=== PATIENT | male | born 1965 | race Two or more races ===

== ENCOUNTER 2016-12-21 17:57 | Emergency (ER) | payer BC, OTHER ==
[2016-12-21] MEDS ORDERED: IOPAMIDOL 300 (61%) 150 ML VIAL IV ONE (17:58)
[2016-12-21 20:48] LABS: URINE BILIRUBIN NEGATIVE (NEGATIVE); URINE BLOOD NEGATIVE (NEGATIVE); URINE GLUCOSE (UA) NEGATIVE (NEGATIVE); URINE LEUKOCYTE ESTERASE NEGATIVE (NEGATIVE); URINE NITRITE NEGATIVE (NEGATIVE); URINE PROTEIN NEGATIVE (NEGATIVE); URINE UROBILINOGEN NORMAL (0-1 mg/dl)
[2016-12-21 20:53] LABS: URINE APPEARANCE CLEAR; URINE COLOR YELLOW
[2016-12-21 20:56] LABS: ABSOLUTE NEUTROPHIL COUNT 4.7 K/mm3 (1.8-7.7); BASO % 0.3 % (0.2-1.0); EOS # 0.1 (0.0-0.5); EOS % 0.8 % (0.9-2.9); HEMATOCRIT 44.2 % (32.0-52.0); HEMOGLOBIN 14.7 gm/l (14.0-18.0); IMM NEUT% 0.3 % (0-1); LYMPH # 1.9 (1.0-4.8); LYMPH % 25.7 % (15-45); MEAN CELL VOLUME 89.7 fl (80.0-94.0); MEAN CORPUSCULAR HEMOGLOBIN 29.8 pg (27.0-31.0); MEAN CORPUSCULAR HGB CONC 33.3 g/dl (33.0-37.0); MEAN PLATELET VOLUME 9.9 fl (7.4-10.4); MONO # 0.7 (0.0-0.8); MONO % 9.5 % (4-12); NEUT % 63.4 % (43-75); PLATELET COUNT 211 K/mm3 (130-400); RED CELL DISTRIBUTION WIDTH 12.9 % (11.5-14.5)
[2016-12-21 21:22] LABS: ALB/GLOB RATIO 1.2 (>1.0); ALBUMIN 4.1 gm/dL (3.5-5.7); CALCIUM 9.2 mg/dL (8.6-10.3); MAGNESIUM 2.2 mg/dL (1.9-2.7)
--- NOTE | 2016-12-22 07:51 | CT ---
Exam Type: ABD/PELVIS W/ CON Date and Time: 12/21/2016 8:29 PM Clinical information: Transient lower abdominal pain for the last week. Comparison: None Technique: Contiguous axial 4 mm images were obtained from the lung bases through the pelvis after the uneventful IV administration of 125 cc of [id number]. Sagittal and coronal reformations with high resolution lung algorithm images were also obtained at this time. CT DI: 11.6 DLP 592.6 FINDINGS: Lung base :No abnormality is identified at the lung bases. Visualized heart:There is no pericardial effusion. LIVER: Diffuse fatty infiltration to the liver is present without focal lesion. BILE DUCTS: normal caliber. GALLBLADDER: No calcified gallstones. Normal caliber wall. PANCREAS: within normal limits. SPLEEN: within normal limits. ADRENALS: within normal limits. KIDNEYS: within normal limits. Stomach and small BOWEL: Normal caliber. Large bowel: Air and stool are noted within the large bowel. Appendix is normal. There is diverticulosis with short segment of diverticulitis involving the mid to distal sigmoid colon. This measures approximately 3.3 cm on coronal image 39. No abscess or free air is present. Pericolonic fat stranding is present with a small amount of fluid tracking along the left paracolic gutter into the pelvis. LYMPH NODES: No enlarged mesenteric lymph nodes. PERITONEUM: no ascites or free air, no fluid collection. VESSELS: within normal limits RETROPERITONEUM: within normal limits. ABDOMINAL WALL: within normal limits. Bladder: Normal BONES: Mild degenerative changes of the spine are present. IMPRESSION: Short segment diverticulitis without abscess or free air involving the sigmoid colon. Consideration for colonoscopy after the patient's acute status is completed should be made to exclude underlying lesion in the absence of any recent colonoscopic data. Diffuse fatty infiltration to the liver and other incidental findings as above. Preliminary report was provided by [facility] at approximately 2133 hours on 12/21/2016.
== END 2016-12-21 21:51 | disposition home or self-care (01) ==
LOC: ED 17:57
DX: K57.92 Diverticulitis of intestine, part unspecified, without perforation or abscess without bleeding (principal); R10.30 Lower abdominal pain, unspecified; R19.7 Diarrhea, unspecified
CPT/HCPCS: 83690; 85025; 80053; 83735; 81003; 74177; Q9967